=== PATIENT | female | born 1940 | race Caucasian/White ===

== ENCOUNTER 2025-07-19 14:02 | Outpatient (CLI) | payer OTHER, SELFPAY | END 2025-07-19 14:03 | disposition home or self-care (01) | LOC: AMB 07-24 12:40 | PROVIDERS: PCP Internal Medicine; Visit Provider Internal Medicine | DX: I63.9 Cerebral infarction, unspecified (principal); R20.2 Paresthesia of skin | CPT/HCPCS: A0425; A0429 ==